=== PATIENT | female | born 1980 | race Two or more races ===

== ENCOUNTER 2022-01-23 12:16 | Day surgery (SDC) | payer OTHER ==
[~2022-01-23] VITALS: Ht 157.5 cm; Wt 92.5 kg
[~2022-01-23 12:16] MED LIST: SYNTHROID150 MCG PO
== END 2022-01-24 01:30 | disposition home or self-care (01) ==
LOC: CIR.AMB 12:16
PROVIDERS: ATTEND Obstetrics & Gynecology Obstetrics
DX: N84.0 Polyp of corpus uteri (principal); I10 Essential (primary) hypertension; Z86.16 Personal history of COVID-19; E66.01 Morbid (severe) obesity due to excess calories; N72 Inflammatory disease of cervix uteri